=== PATIENT | female | born 1990 | race African-American/Black ===

== ENCOUNTER 2023-10-17 17:52 | Emergency (ER) | payer BC, MEDICAID, SELFPAY ==
[2023-10-17 18:00] VITALS: BP 157/87; PULSE 113; RESP 18; TEMP 38.8; O2SAT 99; BMI 42.0
[2023-10-17 18:35] VITALS: RESP 16
[2023-10-17] MEDS: acetaminophen 500 mg Tablet 1000 MG PO (18:45)
[2023-10-17 18:47] LABS: Add Urine Culture? Yes; Bacteria Urine 2+ /hpf; Bilirubin Urine Neg (Negative); Blood Urine 3+ (Negative); Glucose Urine UA Norm (Normal); Ketones Urine Negative (Negative); Leukocyte Esterase Urine 2+ (Negative); Nitrate Urine Positive (Negative); Protein Urine Neg (Negative); Specific Gravity, Urine 1.005 (1.005-1.030); Squamous Epithelial Cell Urine 0-4 /hpf (0-5); Urine Appearance Hazy (CLEAR); Urine Color Yellow (Yellow); Urobilinogen Urine Norm (Negative); WBC Urine TOO NUMEROUS TO CNT /hpf (0-5); pH Urine 6.5 (5-7)
[2023-10-17 19:14] LABS: Basophils # 0.1 10^3/uL (0.0-0.1); Basophils % 0.4 %; Eosinophils # 0.1 10^3/uL (0.0-0.8); Eosinophils % 0.7 %; Hematocrit 37.4 % (36-47); Lymphocytes # 1.1 10^3/uL (0.8-4.8); Lymphocytes % 9.3 %; Mean Corpuscular HGB Conc 32.9 g/dL (30-55); Mean Corpuscular Hemoglobin 28.1 pg (27-33); Mean Corpuscular Volume 85.6 fl (85-98); Mean Platelet Volume 10.9 fL (7.4-10.4); Monocytes # 1.1 10^3/uL (0.2-0.9); Monocytes % 8.7 %; Neutrophils # 9.92 10^3/uL (1.8-7.7); Neutrophils % 80.6 %; Nucleated Red Blood Cells % 0 %; Platelet Count 308 10^3/cmm (157-399); Red Blood Count 4.37 10^6/uL (3.85-5.65); White Blood Count 12.31 10^3/uL (3.29-11.43)
[2023-10-17 19:19] LABS: Rapid Strep A Test Negative (Negative)
[2023-10-17] MEDS: sodium chloride 0.9% 1,000 ML 999 ML IV (19:19)
[2023-10-17] MEDS: cefTRIAXone 1,000 MG in sodium chloride 0.9% (plus) 50 ML 100 MG IV (19:22)
[2023-10-17 19:24] VITALS: BP 127/74; PULSE 100; RESP 18; O2SAT 99
[2023-10-17 19:26] LABS: Influenza A by IFA negative (Negative); Influenza B by IFA negative (Negative); SARS Covid-2 Antigen negative (Negative)
[2023-10-17 19:31] LABS: Alanine Aminotransferase 14 U/L (0-33); Albumin Level 3.7 g/dL (3.5-5.2); Alkaline Phosphatase 80 U/L (35-105); Anion Gap 12.5 (5-19); Aspartate Amino Transferase 15 U/L (0-32); Blood Urea Nitrogen 14 mg/dL (6-20); Calcium 8.2 mg/dL (8.5-10.5); Carbon Dioxide 21 mmol/L (22-29); Chloride 102 mmol/L (98-107); Globulin 3.3 g/dL (1.3-4.6); Glomerular Filtration Rate 68.4 mL/min (90-130); Glucose 103 mg/dL (65-115); Osmolality Calculated 275 mOsm/kg (285-295); Potassium 3.5 mmol/L (3.5-5.1); Sodium 132 mmol/L (136-145); Total Bilirubin 0.3 mg/dL (0.15-1.2)
[2023-10-17 19:33] LABS: Slide Review Slide Review Perform
--- NOTE | 2023-10-17 20:00 | ED_ITS ---
HPI - Female Genitourinary 2 General: Chief complaint: Urogenital-Female Stated complaint: back pain Time Seen by Provider: 10/17/23 18:16 History of Present Illness: 33-year-old female presents to the emerg ency department with complaints of increased urinary frequency and burning with urination. She states she has bilateral low back pain as well as a fever. She states this started yesterday and has continued to worsen and progress. She denies cough, chills or night sweats. She states her bilateral low back pain is a dull vague aching pain that is a 3 out of 10. Review of Systems 2 General: Reports: 10 or more systems reviewed and unremarkable except in HPI and below Const: Reports: fever(s) : Reports: flank pain, dysuria, urinary frequency and urinary urgency Musc: Reports: back pain Physical Exam 2 Narrative: EXAM NARRATIVE: Constitutional: the patient appears well nourished and with normal development. Vital signs reviewed as documented. HENMT: Normocephalic, atraumatic. Extermal ears with normal appearance without drainage. Nose without drainage, normal appearance. Mucus membranes moist. Neck is supple, No jugular venous distension, trachea is midline, no appreciable carotid bruits. No lymphadenopathy. No meningeal signs. Flexion, extension and lateral rotation is without pain. Eyes: Pupils are equal, round, reactive to light and accommodation. No scleral icterus. Extra-ocular movement are intact. Thorax is symmetrical and with equal rise and fall with respirations. Resp: Lungs are clear to auscultation. No wheezes, rales, crackles or ronchi at present. Cardio: Regular rate and rhythm. Positive S1, S2. No appreciable murmurs, rubs or gallops. GI: Abdominal exam reveals normal bowel sounds to all quadrants. No organomegaly. No obvious palpable masses noted. No hepatomegally appreciated. Soft, nontender to palpation. Extremity: Extremities are non-edematous and both femoral and pedal pulses are 2+ and equal bilaterally. Moves all extremities well, sensation in all extremities. Neuro: Alert and oriented x4, person, place, time and situation. Cranial nerves II through XII are grossly intact, there is no focal neurological deficits that I can appreciate at present. Motor strength in the upper and lower extremities are equal and bilateral 5/5. Psych: Cooperative, calm, normal thought process, appropriate judgment. Skin: No lesions, rashes. No gross abnormalities noted. Back: Symmetrical, no obvious deformity, No CVA tenderness Course 2 Vital Signs: Vital signs: Vital Signs Temperature 101.8 F H 10/17/23 18:00 Pulse Rate 100 10/17/23 19:24 Respiratory Rate 18 10/17/23 19:24 Blood Pressure 127/74 10/17/23 19:24 Pulse Oximetry 99 10/17/23 19:24 Oxygen Delivery Me thod Room Air 10/17/23 19:24 MDM - Female Medical Decision Making Physical exam completed and documented, I will obtain a CBC CMP urinalysis as well as influenza A and B and COVID-19 screen as well as a rapid strep screen. I will provide the patient IV antibiotics as well as written prescription for antibiotics at the time of discharge. I will provide the patient a gram of Tylenol for her elevated temperature. Lab Data I reviewed the patient's lab results. 10/17/23 19:05 10/17/23 19:05 Laboratory Results WBC 12.31 10^3/uL (3.29-11.43) H 10/17/23 19:05 RBC 4.37 10^6/uL (3.85-5.65) 10/17/23 19:05 Hgb 12.30 g/dL (11.27-16.99) 10/17/23 19:05 Hct 37.4 % (36-47) 10/17/23 19:05 MCV 85.6 fl (85-98) 10/17/23 19:05 MCH 28.1 pg (27-33) 10/17/23 19:05 MCHC 32.9 g/dL (30-55) 10/17/23 19:05 RDW 15.0 % (12.1-15.1) 10/17/23 19:05 Plt Count 308 10^3/cmm (157-399) 10/17/23 19:05 MPV 10.9 fL (7.4-10.4) H 10/17/23 19:05 Neut % (Auto) 80.6 % 10/17/23 19:05 Lymph % (Auto) 9.3 % 10/17/23 19:05 [place] % (Auto) 8.7 % 10/17/23 19:05 Eos % (Auto) 0.7 % 10/17/23 19:05 Baso % (Auto) 0.4 % 10/17/23 19:05 Neut # (Auto) 9.92 10^3/uL (1.8-7.7) H 10/17/23 19:05 Lymph # (Auto) 1.1 10^3/uL (0.8-4.8) 10/17/23 19:05 [place] # (Auto) 1.1 10^3/uL (0.2-0.9) H 10/17/23 19:05 Eos # (Auto) 0.1 10^3/uL (0.0-0.8) 10/17/23 19:05 Baso # (Auto) 0.1 10^3/uL (0.0-0.1) 10/17/23 19:05 Nucleated RBC % (auto) 0 % 10/17/23 19:05 Nucleated RBCs # 0.0 /100WBC 10/17/23 19:05 Sodium 132 mmol/L (136-145) L 10/17/23 19:05 Potassium 3.5 mmol/L (3.5-5.1) 10/17/23 19:05 Chloride 102 mmol/L (98-107) 10/17/23 19:05 Carbon Dioxide 21 mmol/L (22-29) L 10/17/23 19:05 Anion Gap 12.5 (5-19) 10/17/23 19:05 BUN 14 mg/dL (6-20) 10/17/23 19:05 Creatinine 1.1 mg/dL (0.5-0.9) H 10/17/23 19:05 GFR Calculation 68.4 mL/min (90-130) L 10/17/23 19:05 Glucose 103 mg/dL (65-115) 10/17/23 19:05 Calculated Osmolality 275 mOsm/kg (285-295) L 10/17/23 19:05 Calcium 8.2 mg/dL (8.5-10.5) L 10/17/23 19:05 Total Bilirubin 0.3 mg/dL (0.15-1.2) 10/17/23 19:05 AST 15 U/L (0-32) 10/17/23 19:05 ALT 14 U/L (0-33) 10/17/23 19:05 Alkaline Phosphatase 80 U/L (35-105) 10/17/23 19:05 Total Protein 7.0 g/dL (6.6-8.7) 10/17/23 19:05 Albumin 3.7 g/dL (3.5-5.2) 10/17/23 19:05 Globulin 3.3 g/dL (1.3-4.6) 10/17/23 19:05 Urine Color Yellow (Yellow) 10/17/23 18:12 Urine Appearance Hazy (CLEAR) A 10/17/23 18:12 Urine pH 6.5 (5-7) 10/17/23 18:12 Ur Specific [place] 1.005 (1.005-1.030) 10/17/23 18:12 Urine Protein Neg (Negative) 10/17/23 18:12 Urine Glucose (UA) Norm (Normal) 10/17/23 18:12 Urine Ketones Negative (Negative) 10/17/23 18:12 Urine Blood 3+ (Negative) H 10/17/23 18:12 Urine Nitrate Positive (Negative) H 10/17/23 18:12 Urine Bilirubin Neg (Negative) 10/17/23 18:12 Urine Urobilinogen Norm mg/dL (Negative) 10/17/23 18:12 Ur Leukocyte Esterase 2+ (Negative) H 10/17/23 18:12 Urine RBC 5-10 /hpf (0-2) H 10/17/23 18:12 Urine WBC Too numerous to cnt /hpf (0-5) H 10/17/23 18:12 Ur Squamous Epith Cells 0-4 /hpf (0-5) H 10/17/23 18:12 Amorphous Sediment Not Reportable 10/17/23 18:12 Urine Bacteria 2+ /hpf (NONE) H 10/17/23 18:12 Influenza Type A Ag negative (Negative) 10/17/23 18:50 Influenza Type B Ag negative (Negative) 10/17/23 18:50 SARS-CoV-2 Ag (Rapid) negative (Negative) 10/17/23 18:50 Group A Strep Rapid Negative (Negative) 10/17/23 18:50 No radiology studies performed this visit Discharge Plan Discharge Patient Disposition: Home Clinical Impression: Urinary tract infection Qualifiers: Urinary tract infection type: acute cystitis Hematuria presence: with hematuria Qualified Code(s): N30.01 - Acute cystitis with hematuria Fever Qualifiers: Fever type: unspecified Qualified Code(s): R50.9 - Fever, unspecified Condition: Stable Prescriptions: New levofloxacin 750 mg tablet 750 mg PO DAILY 7 Days Qty: 14 0RF Discharge Orders: Discharge ED (Routine); Ordered 10/17/23 Ordered By: Stan Boles Discharge Diet: Advance as tolerated Discharge Activity: Resume usual activity Patient Instructions: Opioid Safety, Pain Management Activity Restrictions/Additional Instructions: Activity Restrictions/Additional Instructions: Thank you for choosing [facility] for your healthcare needs today. Please realize that you were seen in the Emergency Department and that we are providing you with an emergency medical screening exam and this may not be a complete and all inclusive of all the testing and or medical work-up that you may need to determine your ailment or severity of your illness. It is very important that you follow-up as instructed with your Primary care provider or Specialist for additional evaluation and to discuss your medical treatment plan. You may return to the Emergency Department should you have concerns or if your condition changes or worsens in any way. Coding Level of Care Code ED [facility] for [facility]
[2023-10-17 20:25] VITALS: BP 118/75; PULSE 90; RESP 22; O2SAT 98
== END 2023-10-17 20:27 | disposition home or self-care (01) ==
PROVIDERS: Emergency Provider Internal Medicine
DX: N30.01 Acute cystitis with hematuria (principal); Z11.52 Encounter for screening for COVID-19
CPT/HCPCS: 36415; 80053; 81001; 85025; 87077; 87081; 87086; 87186; 87426; 87804; 87880; 96374; 99284; J0696; J7030